=== PATIENT | male | born 1950 | race Caucasian/White ===

== ENCOUNTER → 2016-05-25 | Outpatient (CLI) | payer MEDICARE, OTHER | END | disposition home or self-care (01) | LOC: GMAM 10:15 | PROVIDERS: ATTEND Family Medicine | DX: I10 Essential (primary) hypertension (principal); E04.9 Nontoxic goiter, unspecified ==

== ENCOUNTER → 2016-12-09 | Outpatient (CLI) | payer MEDICARE, OTHER | END | disposition home or self-care (01) | LOC: GMAM 10:00 | PROVIDERS: ATTEND Family Medicine | DX: E04.9 Nontoxic goiter, unspecified (principal); Z12.5 Encounter for screening for malignant neoplasm of prostate | CPT/HCPCS: 84439; 84443; G0103 ==

== ENCOUNTER 2017-05-06 10:33 | Emergency (ER) | payer MEDICARE, OTHER ==
[2017-05-06 10:58] VITALS: BP 117/90; TEMP 98.1; O2SAT 96
--- NOTE | 2017-05-06 11:03 | ED.PDOC ---
History of Present Illness - General Chief Complaint: ENT Problem Stated Complaint: sore throat,ears hurt,cough,insomnia Time Seen by Provider: 05/06/17 10:43 Source: patient Exam Limitations: no limitations Additional Information: C/O DIFFICULTY SLEEPING. HAS SORETHROAT. WAS RECENTLY SEEN BY UROLOGY FOR ELEVATED PSA AND WAS STARTED ON CIPRO WITH FOLLOW UP FOR PSA APPROX "5". SINCE STARTING CIPRO PT HAS HAD INSOMNIA, AND FELT JITTERY. - History of Present Illness Severity: moderate Improving Factors: nothing Worsening Factors: nothing Associated Symptoms: denies symptoms Allergies/Adverse Reactions: Allergies Penicillins Allergy (Verified 05/06/17 10:59) Home Medications: Ambulatory Orders Alprazolam [Xanax] 1 mg PO BEDTIME 05/06/17 Atorvastatin Calcium [Lipitor] 10 mg PO DAILY 05/06/17 Cefuroxime Axetil [Ceftin] 500 mg PO Q12H #20 tablet 05/06/17 Clopidogrel Bisulfate 75 mg PO DAILY 05/06/17 Hydrocodone-Acetaminophen [Hydrocodone Bitartrate/AC 10-325 mg] 1 tab PO TID Lisinopril 10 mg PO DAILY 05/06/17 Methocarbamol 750 mg PO TID 05/06/17 Multiple Vitamins W/ Minerals [Centrum Silver] 1 ea PO DAILY 05/06/17 Omeprazole [Prilosec] 20 mg PO DAILY 05/06/17 Pregabalin [Lyrica] 150 mg PO DAILY PRN 05/06/17 Review of Systems - Review of Systems Constitutional: Denies: chills, fever EENTM: States: throat pain. Denies: ear pain Respiratory: Denies: cough, short of breath Cardiology: Denies: chest pain, palpitations Gastrointestinal/Abdominal: Denies: abdominal pain, nausea, vomiting Genitourinary: Denies: dysuria, frequency, hematuria Musculoskeletal: States: no symptoms reported Skin: States: no symptoms reported Neurological: States: no symptoms reported Endocrine: States: no symptoms reported Hematologic/Lymphatic: States: no symptoms reported Past Medical History (General) - Patient Medical History Hx Hypertension: Yes Hx Gastroesophageal Reflux: Yes Hx Other PMH: Yes - PVD, HYPERLIPIDEMIA Family Medical History - Family History Father Family History: Unknown Living Status: Unknown Physical Exam - Physical Exam General Appearance: Alert, No apparent distress Eye Exam: bilateral normal Ears, Nose, Throat: pharyngeal erythema, other - NO EXUDATE, TM'S NL. Neck: full range of motion, supple Respiratory: lungs clear, no respiratory distress Cardiovascular/Chest: regular rate, rhythm, no murmur Gastrointestinal/Abdominal: normal bowel sounds, non tender, soft Back Exam: normal inspection, no CVA tenderness Extremity: normal range of motion, normal inspection Neurologic: alert, normal mood/affect Skin Exam: normal color, warm/dry Lymphatic: no adenopathy Progress - Progress Progress: 05/06/17 11:39 RSS NEG. Departure - Departure Clinical Impression: Elevated PSA Pharyngitis Qualifiers: Pharyngitis/tonsillitis etiology: unspecified etiology Qualified Code(s): J02.9 - Acute pharyngitis, unspecified Hypertension Qualifiers: Hypertension type: essential hypertension Qualified Code(s): I10 - Essential ( primary) hypertension Medication adverse effect Qualifiers: Encounter type: initial encounter Qualified Code(s): T88.7XXA - Unspecified adverse effect of drug or medicament, initial encounter ICD-10 Supporting Text: PARTIALLY TREATED PHARYNGITIS Time of Disposition: 11:42 Disposition: Discharge to Home or Self Care Condition: Good Departure Forms: ED Discharge - Pt. Copy, Patient Portal Self Enrollment Instructions: DI for Ear Pain-Adult, DI for Pharyngitis/Tonsillopharyngitis -- Adult Referrals: Vini Palomino MD [Primary Care Provider] - 1-2 Weeks Prescriptions: Cefuroxime Axetil [Ceftin] 500 mg PO Q12H #20 tablet Home Medications: Ambulatory Orders Alprazolam [Xanax] 1 mg PO BEDTIME 05/06/17 Atorvastatin Calcium [Lipitor] 10 mg PO DAILY 05/06/17 Cefuroxime Axetil [Ceftin] 500 mg PO Q12H #20 tablet 05/06/17 Clopidogrel Bisulfate 75 mg PO DAILY 05/06/17 Hydrocodone-Acetaminophen [Hydrocodone Bitartrate/AC 10-325 mg] 1 tab PO TID Lisinopril 10 mg PO DAILY 05/06/17 Methocarbamol 750 mg PO TID 05/06/17 Multiple Vitamins W/ Minerals [Centrum Silver] 1 ea PO DAILY 05/06/17 Omeprazole [Prilosec] 20 mg PO DAILY 05/06/17 Pregabalin [Lyrica] 150 mg PO DAILY PRN 05/06/17
== END 2017-05-06 11:55 | disposition home or self-care (01) ==
LOC: ER 10:33
DX: J02.9 Acute pharyngitis, unspecified (principal); G47.00 Insomnia, unspecified; T36.8X5A Adverse effect of other systemic antibiotics, initial encounter; I10 Essential (primary) hypertension; E78.5 Hyperlipidemia, unspecified

== ENCOUNTER → 2017-05-10 | Outpatient (CLI) | payer MEDICARE, OTHER | LOC: GMAM 15:00 | PROVIDERS: ATTEND Family Medicine | DX: E04.9 Nontoxic goiter, unspecified (principal); R97.20 Elevated prostate specific antigen [PSA] ==

== ENCOUNTER → 2018-05-15 | Outpatient (CLI) | payer MEDICARE, OTHER | LOC: GMAM 15:12 | PROVIDERS: ATTEND Family Medicine | DX: E04.1 Nontoxic single thyroid nodule (principal); N40.0 Benign prostatic hyperplasia without lower urinary tract symptoms ==

== ENCOUNTER → 2018-05-18 | Outpatient (CLI) | payer MEDICARE, OTHER ==
--- NOTE | 2018-05-18 09:44 | CT ---
Study: CT Chest, Abdomen and Pelvis. Indication: ABD PAIN Technique: Noncontrast CT abdomen and pelvis initially obtained. Venous phase CT imaging of the chest, abdomen, and pelvis performed after intravenous administration of contrast. This exam was performed according to our departmental dose-optimization program, which includes automated exposure control, adjustment of the mA and/or kV according to patient size and/or use of iterative reconstruction technique. Comparison: CT chest June 03, 2015. Findings: Heart size normal. No pathologically enlarged mediastinal/hilar lymphadenopathy. Degenerative postsurgical changes of the spine noted. Several tiny noncalcified sub-4 mm pulmonary nodules noted throughout the lungs and are stable. These are benign. No additional follow-up required. No consolidation, pleural effusion, or pneumothorax. Tiny cyst inferior left hepatic lobe. Gallbladder, pancreas, spleen, adrenal glands, right kidney, and prostate gland unremarkable. Several small left renal cysts with the largest measuring up to 2.9 cm. Multiple bladder diverticula noted along the left lateral margin of the bladder. Colonic diverticulosis without diverticulitis. Stomach, small bowel, and appendix unremarkable. No free fluid. No free air. No pathologically enlarged adenopathy. Atherosclerosis aorta. Dual left renal arteries. Tiny fat containing right inguinal hernia. Impression: No acute process within the chest, abdomen, or pelvis. Colonic diverticulosis. Several small left bladder diverticula. Atherosclerosis. Additional findings as above. Electronically signed by: Gigi Loera MD 05/18/2018 9:41 AM SURVEY QUESTIONNAIRE DESIGNER
== END ==
LOC: CT 08:00
PROVIDERS: ATTEND Family Medicine
DX: K57.30 Diverticulosis of large intestine without perforation or abscess without bleeding (principal); N32.3 Diverticulum of bladder; R91.1 Solitary pulmonary nodule; I70.90 Unspecified atherosclerosis

== ENCOUNTER → 2018-07-12 | Outpatient (CLI) | payer MEDICARE, OTHER ==
--- NOTE | 2018-07-12 17:25 | US ---
EXAM DESCRIPTION: Extremity,Lower Juan A Arteries: Ultrasound. CLINICAL HISTORY: PVD COMPARISON: None. TECHNIQUE: Doppler evaluation of the bilateral lower extremity arterial flow waveforms and velocities. FINDINGS: Arterial waveforms in the right lower extremity are all triphasic or biphasic in the major arteries.. Arterial waveforms in the left lower extremity are also triphasic or biphasic in the major arteries.. Comments: Velocities bilaterally are symmetric. Minimal atherosclerotic plaque. IMPRESSION: Doppler evaluation of the bilateral lower extremity arterial systems showing no evidence of significant atherosclerotic occlusive disease. Electronically signed by: Km Hercules MD 07/12/2018 5:23 PM CDT
== END ==
LOC: US 09:00
PROVIDERS: ATTEND Family Medicine
DX: I73.9 Peripheral vascular disease, unspecified (principal)

== ENCOUNTER → 2018-11-09 | Outpatient (CLI) | payer MEDICARE, OTHER | LOC: GMAM 10:31 | PROVIDERS: ATTEND Family Medicine | DX: R10.9 Unspecified abdominal pain (principal); J02.8 Acute pharyngitis due to other specified organisms ==

== ENCOUNTER → 2018-11-16 | Outpatient (CLI) | payer MEDICARE, OTHER | LOC: GMAM 12:24 | PROVIDERS: ATTEND Family Medicine | DX: E04.1 Nontoxic single thyroid nodule (principal); I10 Essential (primary) hypertension; R73.09 Other abnormal glucose ==

== ENCOUNTER → 2019-11-14 | Outpatient (CLI) | payer MEDICARE, OTHER | LOC: GMAM 10:55 | PROVIDERS: ATTEND Family Medicine | DX: E53.8 Deficiency of other specified B group vitamins (principal); Z12.5 Encounter for screening for malignant neoplasm of prostate; E04.1 Nontoxic single thyroid nodule; R73.9 Hyperglycemia, unspecified; E29.9 Testicular dysfunction, unspecified; E55.9 Vitamin D deficiency, unspecified | CPT/HCPCS: 82607; 84403; 84439; 84443; G0103 ==